=== PATIENT | female | born 1945 | race Caucasian/White ===

== ENCOUNTER 2016-08-30 06:57 | Day surgery (SDC) | payer MEDICARE, OTHER ==
[2016-08-24 09:26] LABS: HEMOGLOBIN 13.2 g/dL (12.0-16.0)
[2016-08-24 09:43] LABS: BUN (BLOOD UREA NITROGEN) 17 MG/DL (6-23); CALCIUM, SERUM 9.2 MG/DL (8.5-10.4); CHLORIDE, SERUM 111 MMOL/L (96-112); CO2 (CARBON DIOXIDE) 26 MMOL/L (24-34); CREATININE 0.93 MG/DL (0.55-1.02); GFR AFRICAN AMERICAN 73 ML/MIN (>=60); GFR NON AFRICAN AMERICAN 63 ML/MIN (>=60); GLUCOSE, SERUM 93 MG/DL (60-99); POTASSIUM, SERUM 3.8 MMOL/L (3.5-5.3); SODIUM, SERUM 145 MMOL/L (135-148)
--- NOTE | ~2016-08-30 | OP ---
Record Of Operation [facility] [address] [place]. [address] NAME: EDWARDO CARTER : 47 STATUS : [facility] UNIT#: [id number] AGE: 70 ADM/REG DATE : 08/30/16 MR#: [id number] REPORT SERV DATE: 08/30/16 DICTATED BY: AMANDA CHAVARRIA DATE: 08/30/16 REPORT STATUS : Draft TRANSCRIBED BY: MODL DATE: 08/30/16 DATE OF PROCEDURE: 08/30/2016 SURGEON: Amanda Chavarria D.P.M. PREOPERATIVE DIAGNOSIS: Hallux abductovalgus, left foot. POSTOPERATIVE DIAGNOSIS: Hallux abductovalgus, left foot. PROCEDURE: First metatarsophalangeal joint fusion, left foot. ANESTHESIA: General. HEMOSTASIS: Thigh tourniquet 350 mmHg. ESTIMATED BLOOD LOSS: 5 mL. MATERIALS: An Arthrex first metatarsophalangeal joint plate with one 3.0 interfragmentary screw measuring 26 mm and four locking screws and one nonlocking screw. INJECTABLES: 10 mL of 0.5% Marcaine plain. PATHOLOGY: None. PROCEDURE IN DETAIL: Following IV sedation, the patient was brought to the operating room, and placed on the operating table in the normal supine position. General anesthesia was given and the foot was scrubbed, prepped, and draped in the usual aseptic manner. Attention was directed to the left foot where the incision was marked following the curvature of the bunion deformity. The foot and leg were elevated and exsanguinated, and the tourniquet was inflated to 350 mmHg. Using a #15 blade, the incision was made dorsally over the first metatarsophalangeal joint. The incision was deepened through skin and subcutaneous tissues to the level of the capsule. All bleeders were electrocauterized as necessary. A linear capsulotomy was performed over the first metatarsophalangeal joint. Capsular structures were reflected medially and laterally. Using a sagittal bone saw, the medial eminence was then resected. Next, the joint was distracted and the hallux plantar flexed and the K-wire for the reamer placed into the head of the first metatarsal. The reamer was placed over the K-wire and cartilaginous surface removed from the first metatarsal. The K-wire was then removed and placed into the base of the proximal phalanx. Again, the reamer was placed over the K-wire and the cartilaginous surface of the proximal phalanx was resected using the reamer. The K-wire was then removed. This was used to piecrust the base of the proximal phalanx. This was not necessary on the head of the metatarsal as the bone was soft. Healthy bleeding bone was noted on both surfaces. The wound was then flushed with copious amounts of saline solution. A plate was fitted dorsally over the first metatarsophalangeal joint. The small left foot plate was used. This was temporarily fixated to the bone using the BB-Taks from the set. Next, the interfragmentary screw was placed from the medial proximal phalanx to the lateral first metatarsal. A K-wire was directed from this location Record Of Operation [facility] [address] [facility] [place]. [address] NAME: EDWARDO CARTER : 47 STATUS : [facility] UNIT#: [id number] AGE: 70 ADM/REG DATE : 08/30/16 MR#: [id number] REPORT SERV DATE: 08/30/16 DICTATED BY: AMANDA CHAVARRIA DATE: 08/30/16 REPORT STATUS : Draft TRANSCRIBED BY: LV DATE: 08/30/16 and checked under fluoroscopy noting good position and length measured 26 mm. The screw was then placed over the K-wire and good compression was achieved across the first metatarsophalangeal joint. The K-wire was then removed, and next the locking screws were placed dorsally in the plate. The two locking screws in the first metatarsal were first placed and then the two locking screws into the proximal phalanx. The nonlocking screw was then placed in between the two locking screws in the first metatarsal. Good coaptation of the plate to the bone was noted. A fluoroscopic image was taken, noting excellent length of the screws and good placement. An attempt was made to place the nonlocking screw into the proximal phalanx, but the screw was spinning due to poor bone quality in the proximal phalanx. This was decided to leave this hole open and not place a screw into the hole. The wound was then flushed with copious amounts of saline solution. The capsular structures were closed with 2-0 Vicryl. The subcutaneous tissues were closed with 4-0 Monocryl and skin was closed with 4-0 nylon in a horizontal fashion. 10 mL of 0.5% Marcaine plain were injected about the first metatarsophalangeal joint. The wound was then dressed with Xeroform gauze, 4x4s, Eduardo, and Coban. The tourniquet was deflated and a hyperemic response was noted to all digits on the left foot. The patient tolerated anesthesia and procedure well. She left OR for Recovery with vital signs stable and vascular status intact to the left foot. Following a short stay in Recovery, she will be discharged home. She is allowed weightbearing as tolerated in the removable walking boot, and she will follow up in my office on Sunday. AMISHA/LV anda Chavarria D.P.M. / [id number] CC: Mathew Woodward M.D.
[~2016-08-30 06:57] MED LIST: PRIN10 PO; TOPAMAX100 PO; UTA OR; ZOCOR40 PO
== END 2016-08-30 13:34 | disposition home or self-care (01) ==
LOC: SDC 06:57
PROVIDERS: Podiatrist Foot & Ankle Surgery
PROC: 0QBR0ZZ Excision of Left Toe Phalanx, Open Approach (ICD-10-PCS; principal; 2016-08-30 08:15)
DX: M20.12 Hallux valgus (acquired), left foot (principal); I10 Essential (primary) hypertension; E78.00 Pure hypercholesterolemia, unspecified; F32.9 Major depressive disorder, single episode, unspecified; M19.90 Unspecified osteoarthritis, unspecified site; Z87.442 Personal history of urinary calculi; Z88.0 Allergy status to penicillin; Z91.013 Allergy to seafood; Z98.890 Other specified postprocedural states
CPT/HCPCS: 80048; 85014; 85018; 93005; A9270-GY; C1713; C1769; J2250; J2405; J3010